=== PATIENT | female | born 1965 | race Two or more races ===

== ENCOUNTER 2021-04-14 14:27 | Emergency (ER) | payer MEDICAID ==
[~2021-04-14] VITALS: Ht 160 cm; Wt 76.4 kg
[2021-04-14] MEDS ORDERED: PIPERACILLIN/TAZO 3.375 GM/D5W 50 ML IV ONE (15:30)
[2021-04-14] MEDS ORDERED: MORPHINE SULFATE 4 MG/ML SYRINGE IVP ONE ×3 (15:45→18:30)
[2021-04-14 15:50] LABS: BASOPHILS % (AUTO) 0.4 % (0.0-2.0); EOSINOPHILS % (AUTO) 0.3 % (1.0-6.0); HEMATOCRIT 40.9 % (36-46); LYMPHOCYTES # (AUTO) 0.8 K/uL (1.0-4.8); LYMPHOCYTES % (AUTO) 7.4 % (22.0-44.0); MEAN CORPUSCULAR HEMOGLOBIN 32.6 pg (26.0-34.0); MEAN CORPUSCULAR HGB CONC 34.2 G/dL (31.0-37.0); MEAN CORPUSCULAR VOLUME 95 fL (80-100); MONOCYTES # (AUTO) 0.5 K/uL (0.1-1.0); MONOCYTES % (AUTO) 4.8 % (2.0-9.0); NEUTROPHILS # (AUTO) 8.9 K/uL (1.8-7.7); PLATELET COUNT (AUTO) 122 K/uL (150-450); RED BLOOD CELL COUNT(AUTO) 4.29 MIL/uL (4.00-5.20); RED CELL DISTRIBUTION WIDTH 13.8 % (11.5-14.5)
[2021-04-14 15:52] LABS: NEUTROPHILS % (AUTO) 87.1 % (40.0-70.0)
[2021-04-14 15:54] LABS: ANION GAP 10 mmol/L (8-16); CALCIUM, TOTAL 9.2 mg/dL (8.8-10.5); CARBON DIOXIDE 29 mmol/L (22-29); CHLORIDE 97 mmol/L (98-107); CREATININE 0.58 mg/dL (0.60-1.30); GLOMERULAR FILTR. RATE CALC > 60 mL/min (>60); GLUCOSE,RANDOM 314 mg/dL (70-110); POTASSIUM 3.7 mmol/L (3.5-5.1); SODIUM SERUM 136 mmol/L (136-145); UREA NITROGEN, BLOOD 12 mg/dL (7-18)
[2021-04-14] MEDS ORDERED: SODIUM CHLORIDE 0.9% 100 ML ONE (16:14)
[2021-04-14] MEDS ORDERED: IOHEXOL 350 MG/ML 100 ML VIAL ONE (16:15)
[2021-04-14] MEDS ORDERED: LORazepam 2 MG/ML VIAL IVP ONE (18:30)
[2021-04-14] MEDS ORDERED: LIDOCAINE 1%/EPI 1:200,000/PF 10 ML VIAL PERC ONE (19:00)
[2021-04-14] MEDS ORDERED: POVIDONE-IODINE 10% 15 ML SOLUTION UD TP ONE (19:00)
[2021-04-14 20:30] VITALS: BP 140/85
== END 2021-04-14 20:42 | disposition home or self-care (01) ==
LOC: EMS 14:27
DX: L02.31 Cutaneous abscess of buttock (principal); E11.9 Type 2 diabetes mellitus without complications; I10 Essential (primary) hypertension; F17.210 Nicotine dependence, cigarettes, uncomplicated; E11.65 Type 2 diabetes mellitus with hyperglycemia
CPT/HCPCS: 10061; 36415; 74177; 80048; 85025; 96361; 96365; 96375; 96376; 99285; J2060; J2270; J2543; J3490; J7050; Q9967